=== PATIENT | male | born 1965 | race Two or more races ===

== ENCOUNTER 2023-04-17 20:56 | Emergency (ER) | payer MEDICAID ==
[~2023-04-17] VITALS: Ht 160 cm; Wt 54.4 kg
[2023-04-17] MEDS ORDERED: NAPROXEN 500 MG TABLET PO ONE (21:30)
[2023-04-17] MEDS ORDERED: NAPROXEN 500 MG TABLET ONE (21:33)
[2023-04-17] MEDS ORDERED: NAPR-1009 PO (23:42)
[2023-04-17 23:52] VITALS: BP 125/74; TEMP 98.5; O2SAT 99
== END 2023-04-17 23:52 | disposition home or self-care (01) ==
LOC: ER 20:56
DX: M54.9 Dorsalgia, unspecified (principal); Z79.899 Other long term (current) drug therapy
CPT/HCPCS: 71045; 93005; A4606; A4663